=== PATIENT | female | born 1985 | race Caucasian/White ===

== ENCOUNTER → 2016-07-31 | Day surgery (SDC) | payer OTHER ==
[~2016-07-31] VITALS: Ht 172.7 cm; Wt 79.4 kg
--- NOTE | 2016-08-04 19:09 | Operative Report ---
Operative/Inv Procedure Report Surgery Date: 07/31/16 Name of Procedure: Suction D&C Pre-Operative Diagnosis: Missed Post-Operative Diagnosis: Same Estimated Blood Loss: 50ml to 100ml Surgeon/Health Information Internship: HEATHER GONZALEZ MD Anesthesia: moderate sedation Operative/Procedure Note Note: Procedure note patient is taken to the operating room placed supine position after adequate anesthesia patient placed in dorsolithotomy position the vagina was prepped and draped so fashion the bladder was catheterized examination under anesthesia was performed patient tolerated this well at this point CO2 tenaculum was placed on the [employer] services time dilated to 29 Hegar a sharp curettage of the endometrial lining was performed on a suction curet 8 inserted into the uterus Mayela taken on suction curettage was performed pricey conception noted suction curette was removed sharp curettage of the endometrial lining was performed there is a positive uterine cry CRI patient tolerates this well on since removed from the vagina hemostasis is aided by intravenous Pitocin patient was returned spine position awakened from anesthesia with counts correct and transported recovery room awake alert Findings: Uterus is 10 weeks' size no adnexal masses intrauterine contents consistent with products of conception
== END ==
LOC: STS 07:00
DX: O02.1 Missed abortion (principal)
CPT/HCPCS: 88305; J0131; J1885; J2405